=== PATIENT | female | born 1995 | race Caucasian/White ===

== ENCOUNTER 2017-07-16 15:35 | Emergency (ER) | payer SELFPAY ==
[~2017-07-16] VITALS: Ht 157.5 cm; Wt 50.0 kg
[2017-07-16 15:39] VITALS: BP 99/52; PULSE 65; RESP 16; TEMP 97.6; O2SAT 100
--- NOTE | 2017-07-16 16:16 | PD ---
HPI Chief Complaint: Related Problem Time Seen by Provider: 15:59 Travel History International Travel<30 days: No Contact w/Intl Traveler<30days: No Traveled to known affect area: No History of Present Illness HPI Patient is a 22-year-old female who presents to emergency room for possible . Patient reports that she has history of irregular pregnancies, reports that her last normal menstrual cycle was "a while ago." Patient did have an episode of spotting in May, patient reports that she took 4 test, 3 which are positive, one which is negative. Patient reports that she has had one normal , reports that her tests weren't positive until she was over 20 weeks. Patient with no abdominal pain or cramping at this time. Patient with no vaginal bleeding or spotting. Patient requesting hCG Quant blood work at this time. Patient with no nausea or vomiting, no other complaints. PFSH Past Medical History ?: Unknown Social History Alcohol Use: No Tobacco Use: Yes Substance Use: No Allergies-Medications (Allergen,Severity, Reaction): Coded Allergies: No Known Allergies (Unverified , 07/16/17) Reported Meds & Prescriptions Reported Meds & Active Scripts Active No Active Prescriptions or Reported Medications Review of Systems General / Constitutional: No: Fever Eyes: No: Visual changes HENT: No: Headaches Cardiovascular: No: Chest Pain or Discomfort Respiratory: No: Shortness of Breath Gastrointestinal: No: Abdominal Pain, Hematemesis Genitourinary: No: Dysuria, Nocturia, Hesitancy, Pelvic Pain, Flank Pain, Discharge, Vaginal Bleeding Musculoskeletal: No: Pain Skin: No Rash Neurologic: No: Weakness Psychiatric: No: Depression Endocrine: No: Polydipsia Hematologic/Lymphatic: No: Easy Bruising Physical Exam Narrative GENERAL: NAD SKIN: Focused skin assessment warm/dry. HEAD: Atraumatic. Normocephalic. EYES: Pupils equal and round. No scleral icterus. No injection or drainage. ENT: No nasal bleeding or discharge. Mucous membranes pink and moist. NECK: Trachea midline. No JVD. CARDIOVASCULAR: Regular rate and rhythm. No murmur appreciated. RESPIRATORY: No accessory muscle use. Clear to auscultation. Breath sounds equal bilaterally. GASTROINTESTINAL: Abdomen soft, non-tender, nondistended. Hepatic and splenic margins not palpable. MUSCULOSKELETAL: No obvious deformities. No clubbing. No cyanosis. No edema. NEUROLOGICAL: Awake and alert. No obvious cranial nerve deficits. Motor grossly within normal limits. Normal speech. PSYCHIATRIC: Appropriate mood and affect; insight and judgment normal. Data Data Last Documented VS Vital Signs Date Time Temp Pulse Resp B/P (MAP) Pulse Ox O2 Delivery O2 Flow Rate FiO2 07/16/17 15:39 97.6 65 16 99/52 (68) 100 Orders Orders Beta Hcg (Quant/Titer) (07/16/17 16:03) Ed Urine Pregnancytest Poc (07/16/17 16:03) Labs Laboratory Tests Test 07/16/17 16:10 Human Chorionic Gonadotropin, Quant LESS THAN 1 MIU/ML MDM Medical Decision Making Medical Screen Exam Complete: Yes Emergency Medical Condition: Yes Medical Record Reviewed: Yes Interpretation(s) Vital Signs Date Time Temp Pulse Resp B/P (MAP) Pulse Ox O2 Delivery O2 Flow Rate FiO2 07/16/17 15:39 97.6 65 16 99/52 (68) 100 Differential Diagnosis versus miscarriage Narrative Course 22 year old female who presents to ER for evaluation of possible . Patient with no abdominal pain, no vaginal bleeding or nausea or vomiting this time. Patient is asymptomatic. Urine preg neg. HCG quant ordered. Laboratory Tests Test 07/16/17 16:10 Human Chorionic Gonadotropin, Quant LESS THAN 1 MIU/ML (0-5) HCG Quant is less than 1. Patient informed of negative test. 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
[2017-07-16 16:36] LABS: BETA HCG QUANT LESS THAN 1 MIU/ML (0-5)
== END 2017-07-16 16:50 | disposition home or self-care (01) ==
LOC: PHED 15:35
DX: Z32.02 Encounter for pregnancy test, result negative (principal)
CPT/HCPCS: 84702; 84703; 99283